=== PATIENT | male | born 1995 | race Asian ===

== ENCOUNTER → 2024-08-03 09:32 | Outpatient (CLI) | payer OTHER, SELFPAY ==
--- NOTE | 2024-08-03 09:35 | DI.CT.S_ITS ---
PROCEDURE: CT FOOT LEFT WITHOUT CON INDICATIONS: Eval concern lis franc faracture TECHNIQUE: Noncontrast 1-1.5 mm axial sections acquired from above the tibiotalar joint to the bottom of the calcaneus, with coronal and sagittal reformats. For radiation dose reduction, the following was used: automated exposure control, adjustment of mA and/or kV according to patient size. COMPARISON: None. FINDINGS: Image quality: Excellent. Bones: Acute, minimally displaced, and comminuted fractures of the lateral plantar 1st metatarsal base (2/116; 5/70), 2nd metatarsal base (5/61), 3rd metatarsal proximal diaphysis (5/50), and 4th metatarsal base and proximal diaphysis (5/44). Acute minimally displaced avulsion fractures at the dorsal 1st IP joint (5/76) and 2nd dorsal IP joint (5/63). No divergence at the Lisfranc interval or significant offset of the medial base of the 2nd metatarsal with respect to the intermediate cuneiform. No talar dome osteochondral defect. Joints: The tibiotalar and subtalar joints are preserved. Muscles: Overall muscle bulk is preserved without fatty replacement. Tendons: The visualized flexor and extensor tendon contours are within normal limits. The Achilles tendon contours within normal limits. Vessels: No aneurysmal dilatation of the visualized arterial vasculature. Other soft tissues: Soft tissue edema at the level of the dorsal forefoot/midfoot. IMPRESSION: Acute Lisfranc injury without evidence of significant offset or divergence at this time. Orthopedic surgery/podiatry referral recommended. Dictated by: Bo Yeung M.D. on 08/03/2024 at 16:45 Approved by: Bo Yeung M.D. on 08/03/2024 at 16:53
== END ==
DX: S92.312A Displaced fracture of first metatarsal bone, left foot, initial encounter for closed fracture (principal); S92.322A Displaced fracture of second metatarsal bone, left foot, initial encounter for closed fracture; S92.342A Displaced fracture of fourth metatarsal bone, left foot, initial encounter for closed fracture; S92.332A Displaced fracture of third metatarsal bone, left foot, initial encounter for closed fracture; S92.412A Displaced fracture of proximal phalanx of left great toe, initial encounter for closed fracture; S92.512A Displaced fracture of proximal phalanx of left lesser toe(s), initial encounter for closed fracture; X58.XXXA Exposure to other specified factors, initial encounter
CPT/HCPCS: 73700